=== PATIENT | female | born 1950 | race Caucasian/White ===

== ENCOUNTER 2018-12-25 14:23 | Day surgery (SDC) | payer MEDICARE, OTHER ==
[~2018-12-25 14:23] MED LIST: ASPI325B PO; Advil200 M1 PO; Ativan1 MG PO; DIPH50 PO; HYDCHL25 PO; LOSARTAN POTAS100 MG PO; LOSARTAN-HCTZ1 EAC1 PO; NAPR500EC PO; OXYC5; Omeprazole20 M1 PO
== END 2018-12-25 23:20 | disposition home or self-care (01) ==
LOC: US 14:23
DX: J90 Pleural effusion, not elsewhere classified (principal); C48.8 Malignant neoplasm of overlapping sites of retroperitoneum and peritoneum; C78.7 Secondary malignant neoplasm of liver and intrahepatic bile duct; G89.3 Neoplasm related pain (acute) (chronic); G61.89 Other inflammatory polyneuropathies; R05 Cough
CPT/HCPCS: 32555; 71045

== ENCOUNTER 2019-02-19 12:30 | Emergency (ER) | payer MEDICARE, OTHER ==
[~2019-02-19] VITALS: Ht 157.5 cm; Wt 50.4 kg
[2019-02-19 13:22] LABS: International Normalized Ratio 1.08; Prothrombin Time Results 11.4 Sec (9.7-11.5)
[2019-02-19] MEDS ORDERED: PROM25S (14:48)
[2019-02-19] MEDS ORDERED: Abraxane100 MG IV (14:48)
== END 2019-02-19 17:50 | disposition home or self-care (01) ==
LOC: ER 12:30
PROVIDERS: Emergency Medicine
DX: J90 Pleural effusion, not elsewhere classified (principal); Z85.89 Personal history of malignant neoplasm of other organs and systems; Z79.899 Other long term (current) drug therapy
CPT/HCPCS: 32555; 36415; 71045; 85610; 99284-25

== ENCOUNTER 2019-02-27 01:41 | Day surgery (SDC) | payer MEDICARE, OTHER ==
[~2019-02-27 01:41] MED LIST changes: +Abraxane100 MG IV; -NAPR500EC PO; +NAPROXEN SODIU375 M1 PO; +PROM25S
== END 2019-02-27 23:08 | disposition home or self-care (01) ==
LOC: US 01:41
DX: J90 Pleural effusion, not elsewhere classified (principal); Z79.01 Long term (current) use of anticoagulants; Z51.81 Encounter for therapeutic drug level monitoring
CPT/HCPCS: 32555; 36415; 71045; 85610; 85730

== ENCOUNTER 2019-03-16 14:51 | Emergency (ER) | payer MEDICARE, OTHER ==
[~2019-03-16] VITALS: Ht 157.5 cm; Wt 48.1 kg
[2019-03-16] MEDS ORDERED: LOSA50 PO (16:16)
[2019-03-16] MEDS ORDERED: MIRALAX17 GM PO (16:17)
[2019-03-16] MEDS ORDERED: OXYC5 PO (16:18)
[2019-03-16] MEDS ORDERED: PROM25 PO (16:18)
== END 2019-03-16 16:38 | disposition home or self-care (01) ==
LOC: ER 14:51
DX: J90 Pleural effusion, not elsewhere classified (principal); Z88.5 Allergy status to narcotic agent; Z79.899 Other long term (current) drug therapy
CPT/HCPCS: 32555; 71045; 99284-25

== ENCOUNTER 2019-03-18 16:16 | Inpatient (IN) | payer MEDICARE, OTHER ==
[~2019-03-18] VITALS: Ht 157.5 cm; Wt 54.3 kg
[~2019-03-18 16:16] MED LIST changes: +LOSA50 PO; +MIRALAX17 GM PO; +OXYC5 PO; +PROM25 PO
[2019-03-18 17:38] LABS: BASOPHILS ABSOLUTE AUTO 0.05 K/mm3 (0.00-0.23); BASOPHILS PERCENT AUTO 0 % (0-2); EOSINOPHILS ABSOLUTE AUTO 0.08 K/mm3 (0.00-0.68); EOSINOPHILS PERCENT AUTO 0 % (0-6); Hematocrit 35.1 % (33.0-51.0); Hemoglobin 12.1 g/dL (11.5-16.0); IMMATURE GRAN ABSOLUTE AUTO 0.16 K/mm3 (0.00-0.10); IMMATURE GRAN PERCENT AUTO 1 % (0-1); LYMPHOCYTES ABSOLUTE AUTO 0.53 K/mm3 (0.84-5.20); LYMPHOCYTES PERCENT AUTO 3 % (21-46); MONOCYTES ABSOLUTE AUTO 2.12 K/mm3 (0.16-1.47); MONOCYTES PERCENT AUTO 10 % (4-13); Mean Corpuscular HGB 29.1 pg (26.0-34.0); Mean Corpuscular HGB Conc 34.5 g/dL (31.5-36.5); Mean Corpuscular Volume 84 fL (80-100); Mean Platelet Volume 9.3 fL (9.1-12.4); NEUTROPHILS ABSOLUTE AUTO 18.27 K/mm3 (1.96-9.15); NEUTROPHILS PERCENT AUTO 86 % (41-73); Platelet Count 445 K/mm3 (150-400); RDW Coefficient Variation 18.4 % (11.7-14.2); RDW Standard Deviation 55.8 fL (35.1-46.3); Red Blood Cell Count 4.16 M/mm3 (3.80-5.20); White Blood Cell Count 21.21 K/mm3 (4.00-11.30)
[2019-03-18 18:18] LABS: Alanine Aminotransfer (ALT/SGP 30 U/L (12-78); Albumin, Blood 2.3 g/dL (3.4-5.0); Albumin/Globulin Ratio 0.7 (0.8-1.8); Alk Phos 280 U/L (50-136); Anion Gap 8 mmol/L (6-16); Aspartate Aminotrans (AST/SGOT 47 U/L (12-37); Bilirubin, Total 0.7 mg/dL (0.1-1.0); Blood Urea Nitrogen 21 mg/dL (8-24); Bun/Creatinine Ratio 37.4 (12.0-20.0); CO2, Blood 25 mmol/L (21-32); Calcium, Blood 8.9 mg/dL (8.5-10.1); Chloride, Blood 86 mmol/L (98-108); Creatinine, Blood 0.56 mg/dL (0.40-1.00); Globulin, Blood 3.5 g/dL (2.2-4.0); Glomerular Filtration Rate >60 (60-); Glucose, Blood 99 mg/dL (70-99); Sodium, Blood 119 mmol/L (136-145); Total Protein, Blood 5.8 g/dL (6.4-8.2)
[2019-03-18 21:42] LABS: Source, Urine Clean Catch
[2019-03-18 21:46] LABS: Bilirubin, Urine Neg (Neg); Blood, Urine Neg (Neg); Glucose Qualitative, Urine Neg (Neg); Ketones, Urine Neg (Neg); Leukocyte Esterase, Urine 1+ (Neg); Nitrite, Urine Neg (Neg); Protein, Urine 2+ (Neg); Specific Gravity, Urine 1.015 (1.003-1.022); Urobilinogen, Urine NORM (Normal); pH, Urine 6.5 (5.0-8.0)
[2019-03-18 21:51] LABS: Appearance, Urine Clear (Clear); Color, Urine Yellow (P-Yellow)
--- NOTE | 2019-03-18 21:52 | NUR ---
transfer report on PT being admitted with hyponatremia and cancer with mets. Report from [facility]. PT had abd CT in ER and dilaudid 1 mg IV has NS infusing at 200 ml hr for critically low sodium level. Has DNR status. Await admission.
[2019-03-18 21:53] LABS: Bacteria Rare /hpf; Red Blood Cells, Urine Not Seen /hpf (0-2); Squamous Epithelial Cells Not Seen /hpf (Few)
[2019-03-19 01:28] LABS: Anion Gap 17 mmol/L (6-16); Blood Urea Nitrogen 19 mg/dL (8-24); Bun/Creatinine Ratio 36.5 (12.0-20.0); CO2, Blood 14 mmol/L (21-32); Calcium, Blood 8.1 mg/dL (8.5-10.1); Chloride, Blood 90 mmol/L (98-108); Creatinine, Blood 0.52 mg/dL (0.40-1.00); Glomerular Filtration Rate >60 (60-); Glucose, Blood 103 mg/dL (70-99); Potassium, Blood 4.7 mmol/L (3.5-5.5); Sodium, Blood 121 mmol/L (136-145)
[2019-03-19 05:25] LABS: BASOPHILS ABSOLUTE AUTO 0.03 K/mm3 (0.00-0.23); BASOPHILS PERCENT AUTO 0 % (0-2); EOSINOPHILS ABSOLUTE AUTO 0.06 K/mm3 (0.00-0.68); EOSINOPHILS PERCENT AUTO 0 % (0-6); Hematocrit 33.1 % (33.0-51.0); Hemoglobin 11.1 g/dL (11.5-16.0); IMMATURE GRAN ABSOLUTE AUTO 0.15 K/mm3 (0.00-0.10); IMMATURE GRAN PERCENT AUTO 1 % (0-1); LYMPHOCYTES PERCENT AUTO 2 % (21-46); MONOCYTES ABSOLUTE AUTO 1.66 K/mm3 (0.16-1.47); MONOCYTES PERCENT AUTO 10 % (4-13); Mean Corpuscular HGB 28.1 pg (26.0-34.0); Mean Corpuscular HGB Conc 33.5 g/dL (31.5-36.5); Mean Corpuscular Volume 84 fL (80-100); Mean Platelet Volume 9.1 fL (9.1-12.4); NEUTROPHILS ABSOLUTE AUTO 14.96 K/mm3 (1.96-9.15); NEUTROPHILS PERCENT AUTO 87 % (41-73); Platelet Count 391 K/mm3 (150-400); RDW Coefficient Variation 18.4 % (11.7-14.2); Red Blood Cell Count 3.95 M/mm3 (3.80-5.20); White Blood Cell Count 17.26 K/mm3 (4.00-11.30)
[2019-03-19 05:51] LABS: Anion Gap 6 mmol/L (6-16); Blood Urea Nitrogen 18 mg/dL (8-24); Bun/Creatinine Ratio 34.1 (12.0-20.0); CO2, Blood 25 mmol/L (21-32); Calcium, Blood 8.3 mg/dL (8.5-10.1); Chloride, Blood 90 mmol/L (98-108); Creatinine, Blood 0.53 mg/dL (0.40-1.00); Glomerular Filtration Rate >60 (60-); Glucose, Blood 95 mg/dL (70-99); Potassium, Blood 4.5 mmol/L (3.5-5.5); Sodium, Blood 121 mmol/L (136-145)
--- NOTE | 2019-03-19 06:39 | NUR ---
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 She is recieving 3rd liter of NS now. She denies acute pain, rarely takes oxycodone 5 mg tid baseline and uses oral phenergan to prevent nausea with narcotic use. appetite very poor took liquids with setup and cues only. recieved miralax at hs and again this AM and same with sennakot 17.5 mg po at hs and this AM. Wheezy in upper airway this AM with bilat diminished BS. Spouse accompanied PT to floor. She is resting and able to get up to BSC with 1 assist. Appetite poor recent wt loss. Called intervent radiology answering service about draining fluid fill cystic lesion within liver. Has theraputic thoracentesis set. PT able to communicate, and use call ordoñez. had mediport rt chest assessed in ER. abby blood from port without difficulty use call ordoñez.
--- NOTE | 2019-03-19 18:14 | NUR ---
Initial Spritual Care visit: Per admit trigger, I met with Antonette to offer information on Advanced Directive. She was politely dismissive and denied she needed this document. "My knows my wishes." She was quite tired at time of visit. [employer] will remain available.
--- NOTE | 2019-03-19 22:42 | NUR ---
DR Elise Vergara in to see PT at HS, he increased oxygen from 2 to 4 l nc for sleep. Spouse continues at bedside supportive.
--- NOTE | 2019-03-20 04:47 | NUR ---
pt continues quiet without co major pains or nausea. Continues on IVF NS at 75 ml hour for hyponatremia. She had 4 or 5 BMS yesterday after bowel care of miralax and sennakot given. PT continue with poor oral intake. no real oral intake except for milk taken prior to this shift. PT on oxygen 2 to 4 l nc for dyspnea. PT has Cancer with mets to lungs and liver. Up indep to bathroom or BSC to void dark jazlyn urine. Urine culture pending. Spouse continues supportive at bedside intermittanly. DR Elise Veragra in to see PT. PT NPO for scheduled theraputic thoracenthesis.
[2019-03-20 05:57] LABS: BASOPHILS ABSOLUTE AUTO 0.03 K/mm3 (0.00-0.23); BASOPHILS PERCENT AUTO 0 % (0-2); EOSINOPHILS ABSOLUTE AUTO 0.06 K/mm3 (0.00-0.68); EOSINOPHILS PERCENT AUTO 0 % (0-6); Hematocrit 30.7 % (33.0-51.0); Hemoglobin 10.6 g/dL (11.5-16.0); IMMATURE GRAN ABSOLUTE AUTO 0.21 K/mm3 (0.00-0.10); IMMATURE GRAN PERCENT AUTO 1 % (0-1); LYMPHOCYTES ABSOLUTE AUTO 0.38 K/mm3 (0.84-5.20); LYMPHOCYTES PERCENT AUTO 2 % (21-46); MONOCYTES ABSOLUTE AUTO 1.66 K/mm3 (0.16-1.47); MONOCYTES PERCENT AUTO 8 % (4-13); Mean Corpuscular HGB 28.9 pg (26.0-34.0); Mean Corpuscular HGB Conc 34.5 g/dL (31.5-36.5); Mean Corpuscular Volume 84 fL (80-100); Mean Platelet Volume 8.9 fL (9.1-12.4); NEUTROPHILS PERCENT AUTO 89 % (41-73); Platelet Count 383 K/mm3 (150-400); RDW Coefficient Variation 18.2 % (11.7-14.2); RDW Standard Deviation 55.4 fL (35.1-46.3); Red Blood Cell Count 3.67 M/mm3 (3.80-5.20); White Blood Cell Count 20.54 K/mm3 (4.00-11.30)
[2019-03-20 06:34] LABS: Anion Gap 9 mmol/L (6-16); Blood Urea Nitrogen 17 mg/dL (8-24); Bun/Creatinine Ratio 37.7 (12.0-20.0); CO2, Blood 22 mmol/L (21-32); Calcium, Blood 8.1 mg/dL (8.5-10.1); Chloride, Blood 93 mmol/L (98-108); Creatinine, Blood 0.45 mg/dL (0.40-1.00); Glomerular Filtration Rate >60 (60-); Glucose, Blood 85 mg/dL (70-99); Potassium, Blood 4.2 mmol/L (3.5-5.5); Sodium, Blood 124 mmol/L (136-145)
--- NOTE | 2019-03-20 19:22 | NUR ---
SHIFT SUMMARY: NO ACUTE CHANGES TO REPORT THIS SHIFT. PT A&O; ANXIOUS R/T CA c METS; COOPERATIVE WITH CARE. MEDICATED FOR PAIN PER EMAR. THORACENTESIS THIS SHIFT; 1.5L OFF. 0 O2 USE AT HOME; O2 @ 4L IN HOSPITAL. MEDIPORT TO R CHEST; NS @ 75. REPORT GIVEN TO ONCOMING RN.
--- NOTE | 2019-03-21 05:27 | NUR ---
0330 TOOK OVER CARE FROM ARELY PONCE RN. AGREE WITH HER ASSESSMENTS. PT LYING IN BED, EYES CLOSED, APPEARS TO BE RESTING. BREATHING IS EVEN, UNLABORED. NO APPARENT SIGNS OF DISTRESS. CALL LIGHT IS IN REACH.
--- NOTE | 2019-03-21 05:28 | NUR ---
PT LYING IN BED, EYES CLOSED, APPEARS TO BE RESTING. WAKES EASILY TO VERBAL STIMUL. NO APPARENT SIGNS OF DISTRESS. DENIES NEED FOR ANYTHING AT THIS TIME. CALL LIGHT IS IN REACH. NO OTHER CHANGES THIS SHIFT.
--- NOTE | 2019-03-21 06:47 | NUR ---
SHIFT SUMMARY PT IS A 68 Y/O FEMALE, ADMITTED FOR HYPONATREMIA. SHE REPORTED ABD PAIN, WHICH HAD DECREASED TO A 3/10 AT THE BEGINNING OF SHIFT AFTER SHE WAS GIVEN FENTANYL BY DAY SHIFT. SHE DENIED ANY COMPLAINTS OF NAUSEA OR SOB, AND SLEPT WELL THROUGH THE NIGHT. PT HAD CONTINUOUS NS AT 75 ML/HOUR THROUGH THE NIGHT. HEART RATE WAS TACHY IN THE 130S DURING THE NIGHT. ALL OTHER VITALS STABLE. NO OTHER ACUTE CHANGES IN PT CONDITION NOTED. REPORT GIVEN TO ONCOMING NURSE.
[2019-03-21 09:04] LABS: Anion Gap 9 mmol/L (6-16); Blood Urea Nitrogen 16 mg/dL (8-24); Bun/Creatinine Ratio 38.6 (12.0-20.0); CO2, Blood 22 mmol/L (21-32); Calcium, Blood 7.9 mg/dL (8.5-10.1); Chloride, Blood 95 mmol/L (98-108); Creatinine, Blood 0.42 mg/dL (0.40-1.00); Glomerular Filtration Rate >60 (60-); Glucose, Blood 85 mg/dL (70-99); Potassium, Blood 4.2 mmol/L (3.5-5.5); Sodium, Blood 126 mmol/L (136-145)
--- NOTE | 2019-03-21 18:25 | NUR ---
PATIENT TRANSFER: PATIENT TRANSFERRED TO ROOM 331 AT 1815. PATIENT A&O; ANXIOUS; COOPERATIVE WITH CARE. MEDICATED FOR PAIN PER EMAR. IN ROOM c PATIENT. NS CONTINUING @ 75 ML/HR. REPORT GIVEN TO SARAH DEL VALLE.
--- NOTE | 2019-03-21 19:00 | NUR ---
SHIFT SUMMARY RADHA ARRIVED INTO 331 JUST PRIOR TO SHIFT CHANGE. PER REPORTING NURSE, HADN'T URINATED IN 7 HOURS DESPITE MIVF, BLADDER SCAN SHOWED ABOUT 300. REPORTED TO NIGHT NURSE TO MONITOR. MIVF RUNNING INTO MEDIPORT. PAINFUL BUT WANTS TO HOLD OFF ON OXY BECAUSE SHE WANTS HER PM ATIVAN. 4L OXYGEN, DYSPNEIC ON EXERTION. R BREAST LARGER THAN LEFT, THIS IS NEW. PER PT, IS AWARE. WCTM
--- NOTE | 2019-03-22 07:29 | NUR ---
SHIFT SUMMARY: BLADDER SCAN 380 ML TONIGHT. PT ABLE TO VOID LARGE UNMEASURED VOID AFTERWARDS OF DARK URINE. PRN STRAIGHT CATH NOT NEEDED TONIGHT. PT TREATED FOR R BREAST PAIN 1X c 25 MCG IV FENTANYL. R BREAST IS MUCH LARGER AND TENDER THAN L BREAST. PT IS VERY WEAK AND FATIGUED c MINIMAL MOVEMENT. PT REPORTS POOR INTAKE. MEDIPORT TO R CHEST WALL ACCESSED AND INFUSING NS @ 75 ML/HR. NO OTHER CHANGES TO REPORT. WILL CONT TO MONITOR AND PROVIDE CARE UNTIL PRESUMED BY ONCOMING RN.
[2019-03-22 09:43] LABS: Hemoglobin 12.4 g/dL (11.5-16.0); Mean Corpuscular HGB 28.6 pg (26.0-34.0); Mean Corpuscular HGB Conc 34.4 g/dL (31.5-36.5); Mean Corpuscular Volume 83 fL (80-100); Mean Platelet Volume 8.9 fL (9.1-12.4); Platelet Count 448 K/mm3 (150-400); RDW Coefficient Variation 18.1 % (11.7-14.2); RDW Standard Deviation 54.8 fL (35.1-46.3); Red Blood Cell Count 4.33 M/mm3 (3.80-5.20); White Blood Cell Count 26.21 K/mm3 (4.00-11.30)
[2019-03-22 10:06] LABS: Anion Gap 11 mmol/L (6-16); Blood Urea Nitrogen 14 mg/dL (8-24); Bun/Creatinine Ratio 40.1 (12.0-20.0); CO2, Blood 19 mmol/L (21-32); Chloride, Blood 95 mmol/L (98-108); Creatinine, Blood 0.35 mg/dL (0.40-1.00); Glomerular Filtration Rate >60 (60-); Glucose, Blood 76 mg/dL (70-99); Sodium, Blood 125 mmol/L (136-145)
--- NOTE | 2019-03-22 13:53 | NUR ---
Initial Visit: Palliative Care Consult for Comfort Care. Pt is A&O and reports 5/10 pain in her abdomen and right breast. She appears dyspneic as evidenced by increased respiratory rate and use of accessory muscles. Currently of 4L O2 via NC. Pt also appears moderately anxious. Pt's is present during visit and received verbal permission from Pt to have discussion with Mark present. Listened as Pt and Mark express concerns regarding Pt's prognosis and continued decline. Mark tearful throughout the visit. Offered emotional support. Pt reports she feels ready to have a natural and does not want to suffer any more. She expresses appreciation of having 2 extra years with her from the time she was diagnosed. Pt and Mark both are in agreement that comfort is the goal. Asked if Pt's wishes are to pass away at home. Pt states that she would like to pass away at home but wants to consider her husbands wishes as well. Mark states that he does not think he can handle her passing away at home. He states that he would like to be supportive for her to pass away in the hospital. Mark states he does not think he could continue living in their home if she passes away there. Pt and both would like to proceed with scheduled PleurX drain procedure tomorrow for comfort. No other concerns reported at this time. Spoke with Pt's nurse Collado and he is agreeable with plan. Called and spoke with Dr Robbins and he is agreeable with comfort care. Received V/O from Dr Robbins to place orders for comfort care, comfort care medications. Dr Robbins requests cardiac medications to continue for comfort. Plan: Pt will be placed on comfort measures and palliative care will follow for symptom management.
--- NOTE | 2019-03-22 14:41 | NUR ---
Late Entry Educated Pt and of comfort care philosophy and V/U made by both Pt and Mark.
--- NOTE | 2019-03-22 17:02 | NUR ---
PT IS A/O X3 HOWEVER VERY WEAK/FATIGUED. STATE ABD PAIN & SHORTNESS OF BREATH THIS AM. PRN IV FENTANYL GIVEN, DR ELIZABETH ORDER NEBS. HR TACHY/IRREG, ORDER EKG, A-FLUTTER 170. PLACED ON TELE & ORDER CARDIAZEM & INCREASE METOPROLOL. TELE MX REPORT SINUS TACH 140'S THEN LATER IMPROVE TO 110'S. PALLIATIVE CARE RN IN TO CONSULT WITH PT & LATIA. THEY CHOOSE COMFORT CARE @ THIS TIME. PLACE COMFORT CARE ORDERS. TELE D/C'D. SHE DECLINES RAE CATH FOR NOW HOWEVER INFORM & ENCOURAGE HER THAT IT REMAINS AN OPTION IF UNABLE TO VOID. SHE CONTINUES SOB & PAINFUL, GIVEN ROXANOL 5MG THEN 10MG 1 HR LATER FOR CONTROL/RELIEF. SUPPORTIVE @ BEDSIDE. WILL CONTINUE TO MX & PROVIDE COMFORT CARE.
--- NOTE | 2019-03-23 06:36 | NUR ---
SHIFT SUMMARY PT IS A 68 Y/O FEMALE, ADMITTED FOR HYPONATREMIA. SHE WAS MADE COMFORT CARE YESTERDAY. THE PT DENIED ANY COMPLAINTS OF PAIN OR NAUSEA, AND SLEPT WELL DURING THE NIGHT. NO ACUTE CHANGES IN PT CONDITION NOTED. WILL CONTINUE TO MONITOR AND TREAT PER EMAR.
--- NOTE | 2019-03-23 08:11 | NUR ---
DR. SONG'S OFFICE NOTIFIED OF CONSULT.
--- NOTE | 2019-03-23 10:19 | NUR ---
PT WITH PAIN AND DYSPNEA THIS AM, PRN ROXONOL 10MG GIVEN WITH GOOD AFFECT. PT APPEARS TO BE SLEEPING AT THIS TIME.
--- NOTE | 2019-03-23 14:03 | NUR ---
Met with Antonette and her , Shashi, at bedside. They shared with me stories of their world travels. It has been a joyful marriage for both. Shashi tells me that his only concern is for Antonette's comfort. "She has suffered enough." Both express acceptance with Antonette's path. hSashi explained his hesitation at having Antonette come home to . He does not want that memory in the home they shared so happily. This is understandable. However, Shashi also told me that they have been told Antonette "only has a day or two to live." Therefore, they do not see a need to discuss placement. I am uncertain this prognosis is accurate. Regardless, I affirmed and complimented them on their head. Provided anticipatory bereavement education and juvenile counselor to Shashi. He became tearful at times. Antonette admitted she is in pain. Both expect Plurex placement to solve breathing/pain issues. I encouraged Antonette to ask for pain medication more often. Informed RN. Antonette and Shashi are non-shinto, but responded well to affirmation and gentle juvenile counselor. I will remain available.
--- NOTE | 2019-03-23 16:33 | NUR ---
Met with Antonette and her and friend in her room this afternoon. She is waiting for a surgical consult for a pleurX drain placement. She has recurrent pleural effusions. She also has an area in her liver that her reports is going to be drained. She has a stage IV cancer of unknown primary. She has undergone palliative treatments since 2017. Her cancer continues to spread and she opted to make herself comfort care yesterday. She currently rates her pain 6/10. She states that she doesn't like the taste of roxinol. Explained pain medication options. She was taking oxycodone at home but it lasted only about two hours and she states she had to take an antiemetic prior to taking it so that she wouldn't have nausea. Spoke with Dr. Robbins and new medication options discussed and new orders rec'd. Pt will plan to take an antiemtic as a pre-tx, she prefers IV route at this time, and then take oxycodone to see if that will give her better relief of her pain and lower that number down from a 6/10. Discussed options of short acting vs slow release pain medication vs. topical forms for pain relief. Pt and agreeable to trying oxycodone witha pre-med for nausea at this time. Roxinol can be used for breakthrough pain. Will consider a slow release pain medication if pt needs frequent doses of shorter acting pain medications. Discussed pleurX drains and showed pt and her what this system looks like. They are awaiting a consult by Dr. Gonzalez for drain placement. Pt's states he thinks maybe she will get her drain placed possibly tomorrow. Pt's discussed concerns that he will not be able to take her home with hospice. He is hopeful that she will be able to stay in the hospital and pass away here. Explained to him that if pt doesn't pass away in the next few days that he would need to have a discharge plan. He would like her to go to a facility with hospice services if a discharge plan needs to happen. Spoke with Amada, planner intern, re: this adjusto writer operator's conversation with and Amada states she will plan to meet with him tomorrow to discuss options. Her was updated on Amada's plan. He is aware that he would need to pay the facility charges as hospice would not cover that expense. Antonette was able to sleep through part of my visit today. Her reminisced about their 48 years of marriage together and their extensive traveling to all 50 states and more than 50 countries. He stated that she has suffered enough and he wants her to be comfortable. Discussed EOL symptoms and provided him with a comfort care booklet per his request. He reports that Antonette has essentially has been bedbound at home recently. Her appetite has greatly decreased. Explained the body's natural response of no appetite toward the EOL and he was greatly relieved by this information. Antonette does have a small amount of mottling to her toes and bottoms of her feet bilat. If she progresses rapidly, a pleurX drain and hospice placement may not be necessary. PC will continue to assist with symptom management and education for pt and family re: EOL and pleurX management. Karnofsky performance status = 20 Palliative prognostic index = score of 7.5
--- NOTE | 2019-03-23 17:57 | NUR ---
SHIFT SUMMARY. PT MEDICATED FOR PAIN TO ABD AND FOR DYSPNEA SEVERAL TIMES THIS SHIFT. PAIN WAS NOT BEING MANAGED WITH ROXONOL ADEQUATELY, ALTHOUGH PT DID APPEAR TO REST WITHOUT DISCOMFORT THROUGHOUT MOST OF SHIFT. PALLIATIVE CARE NURSE SPOKE WITH FAMILY IN REGARDS TO PAIN MANAGEMENT AND FOUND THAT PT TAKES 5-10MG OF ROXICODONE FOR PAIN AT HOME AND TAKES ZOFRAN PRIOR TO ADMINISTRATION. AT 1612 PT WAS GIVEN ZOFRAN 4MG IV AND 10MG ROXICODONE PO, PT REPORTED IMPROVED PAIN CONTROL. NO N/V. CONTINUES WITH 4L O2 NC. PT LAYED IN BED MOST OF THE SHIFT WITH FAMILY AT BEDSIDE. MINIMAL PO INTAKE, MOSTLY APPLE JUICE AND MILK. DR. SONG SEEN PT, RECIEVED ORDERS FOR NPO AFTER MIDNIGHT FOR PLEUREX DRAIN PLACEMENT. NO OTHER CHANGES.
--- NOTE | 2019-03-24 07:11 | NUR ---
PT RESTING COMFORTABLY LYING ON HER BACK, APPEARS TO BE SLEEPING WITH NO S/SX OF DISTRESS OR DISCOMFORT.
--- NOTE | 2019-03-24 09:53 | NUR ---
INTO [facility] VIA GURNEY. PT A&OX3. REPORTS 3/10 ABDOMINAL PAIN. SOB WITH MINIMAL EXERTION. LUNGS DIMINISHED R>L. SATS >90% ON RA. DUONEB GIVEN UPON ARRIVAL TO [facility] PER DR. CLARK ORDERS. NPO STATUS CONFIRMED. HISTORY AND ALLERGIES REVIEWED. BP 80/60. LACTATED RINGERS INITIATED PER PRE OP PROTOCOL.
--- NOTE | 2019-03-24 10:01 | NUR ---
0993 PT TO DAY SURGERY VIA [facility].
--- NOTE | 2019-03-24 10:10 | NUR ---
PT REPORTS MINIMAL PAIN, NO SOB, DENIES NEED FOR FURTHER INTERVENTION. FRIEND AT BEDSIDE.
--- NOTE | 2019-03-24 10:19 | NUR ---
BP 87/54-APROXIMATELY 250CC LACTATED RINGERS INFUSED. PT REPOTED FEELING SOB. O2 @ 4 LITERS NASAL CANULA APPLIED.
--- NOTE | 2019-03-24 11:10 | NUR ---
Attempted to visit with Antonette this morning. She is currently in surgery having a pleurX catheter placed. Met with her and friend who stated that the pain medication changes that were made yesterday were effective. Her friend stated that Antonette told her that her pain level was down to a 3/10 this morning. They are hopeful that Antonette will continue to have pain relief. Her plans to meet with the conservation planner this afternoon re: placement options with hospice. Her also reported that he had done some research on the pleurX drain since yesterday. PC will plan to follow up with Antonette this afternoon for symptom management and start pleurX drain teaching if she feels up to it.
--- NOTE | 2019-03-24 11:15 | NUR ---
03/24/19 1115 Elizabeth Dougherty 1100CC REMOVED FROM RIGHT CHEST.
--- NOTE | 2019-03-24 13:23 | NUR ---
1300 PT RETURNED FROM DAY SURGERY. PT WITH SOME DISCOMFORT, SHE REQUESTED SMALL AMOUNT OF PAIN MEDICATION, PT AND FAMILY REQUESTED ONLY ROXONOL 5MG SL. AT BEDSIDE. PT APPEARS LEHTARGIC POST ANESTHEGIA.
--- NOTE | 2019-03-24 17:21 | NUR ---
1500 PT MORE ALERT, POST ANESTHESIA. PT REPORTS ABD PAIN, ROXICODONE 10MG PO AND ZOFRAN 4MG IV GIVEN. PT RESTING COMFORTABLY APPEARING TO BE SLEEPING POST ADMINISTRATION.
--- NOTE | 2019-03-24 17:23 | NUR ---
AT BEDSIDE SINCE RETURNING FORM DAY SURGERY. PT RESTING COMFORTABLY APPEARING TO BE SLEEPING AT THIS TIME.
--- NOTE | 2019-03-24 17:48 | NUR ---
Met with Antonette and her in her room this evening. She is resting comfortably at this time. She reports good pain relief and she had the pleurX drain placed today. Will plan for pleurX drain teaching in the coming days as she requires her pleurX to be drained. 1.5 L removed during pleurX placement. CM met with family this afternoon and plans to assist with placement options. Mottling to feet unchanged from yesterday. Pt awakens to voice, but falls back to sleep when not disturbed. Family voices no requests at this time.
--- NOTE | 2019-03-24 19:43 | NUR ---
PT RESTING APPEARS COMFORTABLE. FAMILY AGREES PT LOOKS COMFORTABLE
--- NOTE | 2019-03-24 22:51 | NUR ---
PT SLEEPING COMFORTABLEY
--- NOTE | 2019-03-24 22:52 | NUR ---
TREATED FOR PAIN AND NAUSEA PER EMAR. BEING CHANGED/REPOSITIONED NOW BY [employer]
--- NOTE | 2019-03-25 02:51 | NUR ---
PT RESTING COMFORTABLY
--- NOTE | 2019-03-25 02:52 | NUR ---
PT WAS TREATED FOR DISCOMFORT PER EMAR EARLIER. APPEARS TO BE RESTING COMFORTABLY NOW.
--- NOTE | 2019-03-25 05:06 | NUR ---
NOC SHIFT [facility] COMFORT CARE PATIENT. HAS SLEPT MOST OF SHIFT. SHE HAS BEEN REPOSITION THROUGH THE NIGHT. HAS REFUSED REPOSITIONS WELL STATING IT WAS UNCOMFORTABLE TO MOVE. HAVE MEDICATED FOR PAIN TO GOOD EFFECT. PT CURRENTLY SLEEPING AND APPEARS COMFORTABLE. WILL CONTINUE TO MONITOR.
--- NOTE | 2019-03-25 16:57 | NUR ---
SUMMARY PT REMAINS ON COMFORT CARE, FAMILY AND/OR FRIENDS AT THE BEDSIDE T/O THE DAY, PT MED PER EMAR FOR PAIN AND ANXIETY, MEDS CRUSHED IN APPLESAUCE, DRESSING AROUND PLEUR-X DRAIN IS MOIST, FAMILY REQUEST PT REST RATHER THAN CHANGE IT AT THIS TIME, WILL ATTEMPT AGAIN, WILL CONT TO MONITOR AND MAINTAIN PT COMFORT
--- NOTE | 2019-03-25 18:35 | NUR ---
DRESSING AROUND PLEUR-X SATURATED, REMOVED OLD DRESSING, CLEANSED THE AREA WITH CHLORHEXIDINE, COVERED WITH NON-ADHERENT GAUZE AND DRAIN SPONGE, THEN COVERED WITH LARGE CLEAR OPSITE, PT DESTINEE WELL
--- NOTE | 2019-03-25 18:46 | NUR ---
Spiritual Care visit: Antonette slept peacefully throughout visit. Her friend was at bedside. 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 She states that Antonette has been preparing those she loves for this time. I provided theraputic listening and anticipatory bereavement public relations counselor to good effect. I will remain available.
--- NOTE | 2019-03-25 20:45 | NUR ---
REPOSITIONED PT & CHANGED DRESSING ON MEDIPORT. MEDICATED PER EMAR FOR NAUSEA & PAIN.
--- NOTE | 2019-03-26 07:23 | NUR ---
SHIFT SUMMARY PT ON COMFORT CARE. SHE REPORTS SHE SLEPT WELL T/O NIGHT. AOX3, RESPONDS SLOWLY TO QUESTIONS & CAN ANSWER APPROPRIATELY. DENIES ANY SOB OR DIFFICULTY BREATHING, HOWEVER WHILE SLEEPING RR WAS 8-12 W/3-8 SEC PERIODS OF APNEA. LAST NIGHT ASKED ME TO LEAVE PT ALONE IF SHE WAS SLEEPING & TO NOT WAKE TO REPOSITION, BUT TO MEDICATE FOR PAIN BEFORE DAY SHIFT NURSE ARRIVED, PT REPOSITIONED 2X PER REQUEST. REPORTS PAIN IN RIGHT SIDE, HAS DIFFICULTY RATING PAIN LEVEL BUT SHOWS MANY NON-VERBAL PAIN SYMPTOMS, MEDICATED 2X W/OXYCODONE PER ORDERS. REPORTED MILD NAUSEA LAST NIGHT & WAS MEDICATED 1X W/ZOFRAN PER ORDERS. CALL LIGHT IS IN REACH.
--- NOTE | 2019-03-26 14:48 | NUR ---
Spoke with Pt's bedside nurse Jenny and she reports Pt is showings signs of decline. Pt is resting in bed upon arrival and appears comfortable. Pt is non verbal and when asked about pain she smiles and closes her eyes. Pt is experiencing long periods of apnea and mottling in the feet noted. Pt and long time friend present during visit. Spoke with Pt's outside of room and educated him on actively dying stage with possible signs and symptoms the Pt may experience. Asked if a home has been decided and reports not at this time. He reports that he will call around. Offered a list of homes and denies need. Palliative Care will remain available for symptom management.
--- NOTE | 2019-03-26 17:37 | NUR ---
SUMMARY PT REMAINS ON COMFORT CARE, FAMILY HAS BEEN IN FOR MOST OF THE DAY, PT'S FEET ARE BEGINNING TO MOTTLE, EDUCATED FAMILY ABOUT END OF LIFE SIGNS AND SYMPTOMS, PALLIATIVE CARE HAS VISITED, MECHANICAL OPERATOR HAS VISITED, PT HAS BEEN MED PER EMAR FOR PAIN, PLEUR-X DRESSING INTACT AND MOIST WITH SEROUS FLUID, FAMILY AND PT DECLINED A DRESSING CHANGE AT THIS TIME, WILL CONT TO MONITOR
--- NOTE | 2019-03-27 04:47 | NUR ---
SHIFT SUMMARY: PT IS RESPONSIVE TO VERBAL STIMULI. FAMILY IN THE ROOM AT THE START OF THE NIGHT. PT SHOWED S/S FOR PAIN, MEDICATING PER EMAR. PT TURNED NEEDED FOR COMFORT. NO ACUTE CHANGES. WILL REPORT TO DAY NURSE.
--- NOTE | 2019-03-27 11:17 | NUR ---
400 ml clear light jazlyn fluid drained. Pt with increased discomfort and occasional cough noted. Pt requested to stop after 400 ml had been slowly removed. Nursing medicated pt with roxinol just after fluid drained. Insertion area without s/s of infection. Small amount of fluid leaking from sight. Dressing changed per protocol with sterile technique maintained. Drain sponge and sterile 4x4s placed under tegaderm dressing.
--- NOTE | 2019-03-27 11:20 | NUR ---
Called to room per nursing for a pleurX catheter drain as pt c/o increased SOB this morning. and friend, Jennifer, at bedside. PleurX drain procedure explained to pt and family and performed using sterile technique. Minimal mottling noted to bilat feet. She does have some edema to lower legs and hands and feet are cool to touch. 400 ml total drained, pt requested to stop after 400 ml. Medicated for discomfort per nursing.
--- NOTE | 2019-03-27 14:18 | NUR ---
Returned to pt's room to check on her after her pleurX drain was used to remove 400 ml this morning. She reports good pain relief and states that her breathing has improved. Visitors at bedside state that she does look more comfortable this afternoon. No acute needs at this time. PC will continue to follow.
--- NOTE | 2019-03-27 18:14 | NUR ---
SUMMARY PT RESTING QUIETLY IN BED, VISITORS AT THE BEDSIDE T/O THE DAY, PT HAS BEEN MEDICATED PER EMAR FOR PAIN, PT ON COMFORT CARE, THIS MORNING PT C/O SOME SHORTNESS OF BREATH, PALLIATIVE CARE RN CAME AND HOOKED UP THE PLEUR-X AND DRAINED OFF SOME FLUID, PT DESTINEE WELL, PT LESS SOB AFTERWARDS, WILL CONTINUE TO MONITOR AND MAINTAIN COMFORT
--- NOTE | 2019-03-28 06:42 | NUR ---
a+o when awake, spent the majority of after family left eyes closed even breathing, honored request not to be woken for prin medication but did perform frequent checks, call light in reach, room air, saline locked,
--- NOTE | 2019-03-28 16:12 | NUR ---
PATIENT ALERT. RELATIVES/FRIENDS VISITING T/O SHIFT. MEDICATED FOR NAUSEA AND PAIN WITH GOOD RESULTS. MEDIPORT ACCESSED. FREQUENT ROUNDING. ON COMFORT CARE. [facility].
--- NOTE | 2019-03-28 17:15 | NUR ---
Antontete is awake and smiling as I entered the room today. She states she is comfortable and does not have any SOB at this time. Family explains that MD has ordered a long acting pain medication which pt was able to take this morning but reports swallowing is sometimes difficult. Pt and family are hopeful that if this pain medication works well for her that she won't be so painful after she sleeps at night. They report that between [id number] she gets very painful if she has slept well and is not awakened for pain medication. No questions or requests at this time. PC will continue to follow for symptom management.
--- NOTE | 2019-03-29 06:22 | NUR ---
SHIFT SUMMARY PT ON CC. AT BEDSIDE AND ASSISTED C GIVING HER 2100 OXY. HAD DIFFICULT TIME SWALLOWING IT C APPLESAUCE AND THEN WATER WITH JUST DIFFICULT TIME C SWALLOWING IN GENERAL BUT PILL WAS ABLE TO GET DOWN. SHE COULDN'T REALLY FOLLOW DIRECTIONS/COMMANDS AND DIDN'T ANSWER WHEN ASKED QUESTIONS. SHE WAS ABLE TO GET TO SLEEP AFTER THE OXY BUT STILL MOANED IN HER SLEEP FROM TIME TO TIME SO GIVEN PO ROXANOL PER EMAR. BREATHING WOULD BE IRREGULAR WITH GASPING AND PERIODS OF APNIC BREATHING. WHEN TURNED SHE WOKE UP AND OPENED HER EYES AND WOULD COMMUNICATE AND TRACK. NO URINE OUTPUT.
--- NOTE | 2019-03-29 10:43 | NUR ---
Met with Antonette and her this morning. She awakened when I walked into her room and said good morning. When I asked her how she was doing she smiled, gave me a thumbs up and drifted back off to sleep. Her is at the bedside. He reports having her swallow the extended release oxycontin last night was very difficult and Antonette and he agreed they do not want to have that medication again. They prefer the oxycodone which can be crushed in applesauce along with the roxinol for breakthrough pain. She receives pre-medication with IV zofran prior to oxycodone. Discussed the option of ODT zofran which she has ordered, however at this time her stated he wanted to stay with the IV zofran as it working well for her. No change in mottling of her feet. She is having periods of apnea 5-6 seconds when she is asleep that are noted this morning. Pt's denied need for pleurX draining this morning. He states her breathing doesn't appear to be labored. Encouraged him to call if he feels her resp start to become labored. Will continue to monitor.
--- NOTE | 2019-03-29 15:35 | NUR ---
Pt's came into the palliative care office and wanted to make sure that staff knew that when pt passes away that he has chosen [facility]. He states that when he leaves and is at home he doesn't always have cell service. Nursing order takers supervisor notified of his home choice. Reviewed PC notes and found documentation on 03/26/19 that charge nurse on medical floor was notified of this choice as well.
--- NOTE | 2019-03-29 18:42 | NUR ---
MEDICATED T/O SHIFT. MEDS FOR EXCESSIVE SECRETIONS GIVEN. PATIENT SUCTIONED OF FROTHY SPUTUM. GURGLING BREATHING IN BACK OF THROAT. FEET BLUE. S.O. AND FRIEND BY PATIENTS SIDE. PER S.O. NO TURNING OR CHANGING OF BRIEFS. WCTM.
--- NOTE | 2019-03-30 00:59 | NUR ---
AND FRIEND OF PT IN ROOM WITH PT. SHE HAD AUDIBLE GURGLING AND WAS MOANING FROM TIME TO TIME. CHANGED HER BRIEF AND REPOSITIONED HER UP STRAIGHTER AND IT WAS ABLE TO HELP WITH THE GURGLING. MEDICATED PER EMAR C ROXANOL FOR AIR HUNGER AND PAIN. SHE WAS STILL ANXIOUS AND MOANING A LOT AFTER THAT SO MEDICATED C IV ATIVAN AND THIS WAS ABLE TO HELP HER REST MORE PEACEFULLY AND FAMILY WAS RELIEVED SHE WAS PEACEFUL AND LEFT FOR THE NIGHT SAYING THEY WOULD BE BACK IN THE MORNING. APPROX 30 MIN AFTER FAMILY LEFT PT PASSED AT APPROX [id number]. HAD TOLD ME PREVIOUSLY HE DID NOT WANT TO BE CALLED AND NOTIFIED DURING THE NIGHT BUT WOULD BE BACK IN THE MORNING AND IF SHE WAS ALREADY MOVED OUT OF THE ROOM HE WOULD BE OK WITH THAT. BODY PICKED UP AT APPROX [id number].
== END 2019-03-29 22:00 | DRG 180 ==
LOC: ER 16:16 → MEDS 20:11
PROVIDERS: Internal Medicine; Physician Assistant; Surgery; ADMIT Hospitalist
PROC: 0W993ZX Drainage of Right Pleural Cavity, Percutaneous Approach, Diagnostic (ICD-10-PCS; 2019-03-20)
PROC: 0W9930Z Drainage of Right Pleural Cavity with Drainage Device, Percutaneous Approach (ICD-10-PCS; principal; 2019-03-24 10:30)
DX: C78.2 Secondary malignant neoplasm of pleura (principal); J96.21 Acute and chronic respiratory failure with hypoxia; E22.2 Syndrome of inappropriate secretion of antidiuretic hormone; C48.2 Malignant neoplasm of peritoneum, unspecified; C78.01 Secondary malignant neoplasm of right lung; C78.7 Secondary malignant neoplasm of liver and intrahepatic bile duct; I48.92 Unspecified atrial flutter; J91.0 Malignant pleural effusion; Z51.5 Encounter for palliative care; G47.30 Sleep apnea, unspecified; I10 Essential (primary) hypertension; G89.3 Neoplasm related pain (acute) (chronic); G62.9 Polyneuropathy, unspecified; Z66 Do not resuscitate; K59.00 Constipation, unspecified; K21.9 Gastro-esophageal reflux disease without esophagitis
CPT/HCPCS: 32555; 36415; 71045; 71046; 74176; 80048; 80053; 81001; 83605; 83690; 83735; 84295; 85025; 85027; 87086; 93005; 93010; 94760; 96361; 96374; 96375; 99285-25; C1729; J0690; J1100; J1170; J1642; J1650; J2060; J2250; J2370; J2405; J2704; J3010; J7030; J7120